=== PATIENT | female | born 1955 | race Two or more races ===

== ENCOUNTER 2020-02-17 15:01 | Emergency (ER) | payer MEDICARE, OTHER ==
[~2020-02-17] VITALS: Ht 157.5 cm; Wt 79.4 kg
[~2020-02-17 15:01] MED LIST: NORCO 5-325 TA1 EACH ORAL; UNOBMED
[2020-02-17 15:45] VITALS: BP 128/89
[2020-02-17] MEDS ORDERED: Tetanus/Diptheria/Pertussis IM ONE (15:45)
--- NOTE | 2020-02-17 15:45 | NUR ---
ED Nurse Note: Patient walked in to ER from home. Per patient she dropped a glass bottle of soda that caused a lacerationnon the anterior part of the R leg, no active bleeding noted.
--- NOTE | 2020-02-17 16:34 | Emergency Room Report ---
History of Present Illness General Chief Complaint: Laceration Source: Patient Present Illness HPI 64-year-old female with history of type 2 diabetes currently controlled with medication here due to a laceration on right lower extremity. Patient reports that a glass bottle fell on her right lower extremity and broke. Rates the pain 5 out of 10 without radiation. Denies taking any blood thinners. A 1 cm superficial laceration noted in the right anterior tib-fib. Mild bleeding noted. Has full range of motion. Denies any tingling numbness. Denies all other injuries, head injury loss of consciousness. Denies chest pain, shortness of breath, headache and dizziness, no other associate symptoms Is not up-to-date with tetanus shot and Tdap was given at ED today was Allergies: Coded Allergies: PENICILLIN (Verified Allergy, Unknown, 09/12/15) COVID-19 Screening Contact w/high risk pt: No Recent Travel to affected area: No Experienced COVID-19 symptoms?: No COVID-19 Testing performed SOFTWARE QUALITY ENGINEER: No Patient History Past Medical History: see triage record Past Surgical History: none Pertinent Family History: none Now: No Immunizations: UTD Reviewed Nursing Documentation: PMH: Agreed; PSxH: Agreed Nursing Documentation-PMH Hx Hypertension: Yes Hx Diabetes: Yes Review of Systems All Other Systems: negative except mentioned in HPI Physical Exam Vital Signs Date Time Temp Pulse Resp B/P (MAP) Pulse Ox O2 Delivery O2 Flow Rate FiO2 02/17/20 15:31 99.1 73 19 128/89 (102) 98 Room Air Sp02 EP Interpretation: reviewed General Appearance: no apparent distress, alert, GCS 15, non-toxic Head: normocephalic, atraumatic Eyes: bilateral eye normal inspection, bilateral eye PERRL ENT: hearing grossly normal, normal pharynx, no angioedema, normal voice Neck: full range of motion, supple/symm/no masses Respiratory: chest non-tender, lungs clear, normal breath sounds, speaking full sentences Cardiovascular #1: regular rate, rhythm, no edema Cardiovascular #2: 2+ dorsalis pedis (R), 2+ dorsalis pedis (L) Gastrointestinal: normal bowel sounds, non tender, soft, non-distended, no guarding, no rebound Genitourinary: no CVA tenderness Musculoskeletal: back normal, no calf tenderness, non-tender Neurologic: alert, motor strength/tone normal, oriented x3, sensory intact, responsive, speech normal Psychiatric: judgement/insight normal Skin: laceration - 1 cm superficial laceration right anterior tib-fib Lymphatic: no adenopathy Procedures Laceration/Wound Repair Laceration/Wound Repair : Consent: Verbal Wound Location: lower extremity - Right anterior tib-fib Wound's Depth, Shape: superficial Wound Length (cm): 1 Wound Explored: clean Betadine Prep?: Yes Anesthesia: Lidocaine w/ Epi Volume Anesthetic (ccs): 5 Wound Repaired With: sutures Suture Size/Type: 4:0, nylon Number of Sutures: 4 Layer Closure?: Yes Sterile Dressing Applied?: Yes Splint Applied?: No Sling Applied?: No Patient Tolerated: Well Complications: None Medical Decision Making PA Attestation All my diagnosis and treatment plans were reviewed ad discussed with my supervising physician Dr. Bose Diagnostic Impression: Primary Impression: Laceration of leg ER Course 64-year-old female with history of type 2 diabetes currently controlled with medication here due to a laceration on right lower extremity. Patient reports that a glass bottle fell on her right lower extremity and broke. Rates the pain 5 out of 10 without radiation. Denies taking any blood thinners. A 1 cm superficial laceration noted in the right anterior tib-fib. Mild bleeding noted. Has full range of motion. Denies any tingling numbness. Denies all other injuries, head injury loss of consciousness. Denies chest pain, shortness of breath, headache and dizziness, no other associate symptoms Is not up-to-date with tetanus shot and Tdap was given at ED today was Ddx considered but are not limited to : Superficial laceration, deep laceration , tendon involvement with laceration, laceration with foreign body Vital signs: are WNL, pt. is afebrile H&PE are most consistent with: Superficial laceration of leg ORDERS: Right tib-fib x-ray, clindamycin, Motrin, antibiotics were given to the patient diabetes status ED INTERVENTIONS: Tdap, wound closure and dressing DISCHARGE: At this time pt. is stable for d/c to home. Will provide printed patient care instructions, and any necessary prescriptions. Care plan and follow up instructions have been discussed with the patient prior to discharge. Sutures to be removed in 7 to 10 days, take medication as directed, follow primary doctor, if worsening symptoms return to the emergency room Other X-Ray Diagnostic Results Other X-Ray Diagnostic Results : X-Ray ordered: Right tib-fib # of Views/Limited Vs Complete: 3 View Indication: Pain EP Interpretation: Yes JOSAFAT Xray: Interpretation reviewed, by supervising MD, and agrees with findings. Interpretation: no dislocation, no soft tissue swelling, no fractures, other - No foreign body noted Impression: No acute disease Electronically Signed by: Maricel Potts PA-C Last Vital Signs Date Time Temp Pulse Resp B/P (MAP) Pulse Ox O2 Delivery O2 Flow Rate FiO2 02/17/20 15:45 99.1 19 128/89 98 Room Air 02/17/20 15:31 73 Disposition: HOME, SELF-CARE Condition: Stable Scripts Ibuprofen* (MOTRIN*) 600 Mg Tablet 600 MG ORAL Q6HR, #20 TAB Prov: Maricel Petersen 02/17/20 Clindamycin Hcl* (CLINDAMYCIN HCL*) 150 Mg Capsule 300 MG ORAL TID for 7 Days, #21 CAP Prov: Maricel Petersen 02/17/20 Referrals: NOT CHOSEN [facility]/,REFERRING (PCP) Patient Instructions: Laceration Care, Adult Additional Instructions: Take medication as directed, sutures to be removed in 7 to 10 days, follow-up with primary doctor, if worsening symptoms return to the emergency room Maricel Petersen Feb 17, 2020 16:34
[2020-02-17] MEDS ORDERED: CLINDAMYCIN HC150 MG ORAL (16:35)
[2020-02-17] MEDS ORDERED: IBUPROFEN600 M1 ORAL (16:35)
[2020-02-17 16:48] VITALS: BP 128/89
--- NOTE | 2020-02-17 16:49 | Diagnostic Imaging Report ---
Indication: Leg pain Technique: 2 views of the left tibia and fibula Comparison: none Findings: No acute fractures. No dislocations. There is a small plantar spur. No radiopaque foreign body Impression: Negative
--- NOTE | 2020-02-17 16:58 | NUR ---
ED Nurse Note: Pt cleared by health care Provider for discharge. DC instructions/prescription was given and explained to pt and verbalized understanding of teachings. All medical deviecs such as ID band removed. Pt is AAO x4, ambulatory and left with all personal belongings.
== END 2020-02-17 16:48 | disposition home or self-care (01) ==
LOC: EMR 15:30
DX: S81.811A Laceration without foreign body, right lower leg, initial encounter (principal); Z23 Encounter for immunization; W25.XXXA Contact with sharp glass, initial encounter; Y92.9 Unspecified place or not applicable; Z88.0 Allergy status to penicillin; E11.9 Type 2 diabetes mellitus without complications; I10 Essential (primary) hypertension
CPT/HCPCS: 90471; 90715; 99283

== ENCOUNTER 2020-02-26 12:55 | Emergency (ER) | payer MEDICARE, OTHER ==
[~2020-02-26] VITALS: Ht 157.5 cm; Wt 72.6 kg
[~2020-02-26 12:55] MED LIST changes: +CLINDAMYCIN HC150 MG ORAL; +IBUPROFEN600 M1 ORAL
[2020-02-26 13:10] VITALS: BP 114/79
[2020-02-26] MEDS ORDERED: MUPIROCIN22 GM TOPIC (13:14)
--- NOTE | 2020-02-26 13:14 | Emergency Room Report ---
History of Present Illness General Chief Complaint: Wound Recheck/Suture Removal Source: Patient Present Illness HPI 64-year-old female with history of diabetes controlled who was here about 10 days ago for laceration of right lower extremity here requesting suture removal. Patient is afebrile and complains of minimal pain at the site of the suture however no pus drainage noted. Patient has full range of motion at the site of the sutures however there is no cellulitis noted denies any tingling or numbness. 4 sutures were placed and without any infection the laceration is healed. Denies all other associated symptoms. Allergies: Coded Allergies: PENICILLIN (Verified Allergy, Unknown, 09/12/15) COVID-19 Screening Contact w/high risk pt: No Recent Travel to affected area: No Experienced COVID-19 symptoms?: No COVID-19 Testing performed REGENERATOR OPERATOR: No Patient History Past Medical History: see triage record Past Surgical History: none Pertinent Family History: none Last Menstrual Period: na Now: No Reviewed Nursing Documentation: PMH: Agreed; PSxH: Agreed Nursing Documentation-PMH Past Medical History: No History, Except For Hx Hypertension: Yes Hx Diabetes: Yes Review of Systems All Other Systems: negative except mentioned in HPI Physical Exam Vital Signs Date Time Temp Pulse Resp B/P (MAP) Pulse Ox O2 Delivery O2 Flow Rate FiO2 02/26/20 13:04 99.1 98 17 108/80 (89) 98 Room Air Sp02 EP Interpretation: reviewed, normal General Appearance: well appearing, no apparent distress Head: normocephalic, atraumatic Eyes: bilateral eye normal inspection ENT: hearing grossly normal, normal voice Neck: full range of motion, supple Respiratory: lungs clear, no respiratory distress, no wheezing, speaking full sentences Cardiovascular #1: no edema, no murmur Cardiovascular #2: 2+ dorsalis pedis (R), 2+ dorsalis pedis (L) Gastrointestinal: normal inspection, normal bowel sounds, non tender, soft Rectal: deferred Genitourinary: no CVA tenderness Musculoskeletal: normal inspection, gait/station normal, back normal Neurologic: alert, oriented, normal gait Psychiatric: normal inspection, judgement/insight normal, memory normal, mood/ affect normal Skin: laceration - repaired and healed right lower tib fib Lymphatic: no adenopathy Procedures Laceration/Wound Repair Progress 4 sutures were removed w/o complications from Right lower tib fib. steri strip was applied Medical Decision Making PA Attestation All diagnoses and treatment plans were reviewed and discussed with my supervising physician Dr. Cardoza Diagnostic Impression: Primary Impression: Encounter for removal of sutures ER Course 64-year-old female with history of diabetes controlled who was here about 10 days ago for laceration of right lower extremity here requesting suture removal. Patient is afebrile and complains of minimal pain at the site of the suture however no pus drainage noted. Patient has full range of motion at the site of the sutures however there is no cellulitis noted denies any tingling or numbness. 4 sutures were placed and without any infection the laceration is healed. Denies all other associated symptoms. Ddx considered but are not limited to : Superficial laceration, deep laceration , tendon involvement with laceration, laceration with foreign body Vital signs: are WNL, pt. is afebrile H&PE are most consistent with:suture removal w/o complications ORDERS: bactroban ointment ED INTERVENTIONS: suture removal, 4 sutures removed and steri strip applied w/o complication DISCHARGE: At this time pt. is stable for d/c to home. Will provide printed patient care instructions, and any necessary prescriptions. Care plan and follow up instructions have been discussed with the patient prior to discharge. Last Vital Signs Date Time Temp Pulse Resp B/P (MAP) Pulse Ox O2 Delivery O2 Flow Rate FiO2 02/26/20 13:04 99.1 98 17 108/80 (89) 98 Room Air Disposition: HOME, SELF-CARE Condition: Stable Scripts Mupirocin* (MUPIROCIN*) 22 Gm Oint...g. 1 APPLIC TOPIC THREE TIMES A DAY, #22 GM Prov: Maricel Petersen 02/26/20 Referrals: NOT CHOSEN [facility]/,REFERRING (PCP) Patient Instructions: Suture Removal, Care After Additional Instructions: Take medication as directed, follow with your primary doctor, if worsening symptoms return to the emergency room Maricel Petersen Feb 26, 2020 13:14
[2020-02-26 13:19] VITALS: BP 112/76
== END 2020-02-26 13:20 | disposition home or self-care (01) ==
LOC: EMR 13:11
DX: Z48.02 Encounter for removal of sutures (principal); S81.811D Laceration without foreign body, right lower leg, subsequent encounter; I10 Essential (primary) hypertension; E11.9 Type 2 diabetes mellitus without complications; X58.XXXD Exposure to other specified factors, subsequent encounter; Z88.1 Allergy status to other antibiotic agents
CPT/HCPCS: 99282